=== PATIENT | male | born 1975 | race Caucasian/White ===

== ENCOUNTER 2018-08-25 10:21 | Emergency (ER) | payer SELFPAY ==
[~2018-08-25] VITALS: Ht 185.4 cm; Wt 88.0 kg
[2018-08-25 10:53] VITALS: BP 118/77
== END 2018-08-25 11:58 | disposition home or self-care (01) ==
LOC: ED 11:52
DX: K04.7 Periapical abscess without sinus (principal); K02.9 Dental caries, unspecified; F17.200 Nicotine dependence, unspecified, uncomplicated
CPT/HCPCS: 41800; 99283